=== PATIENT | female | born 2000 | race African-American/Black ===

== ENCOUNTER → 2023-03-29 | Outpatient (CLI) | payer OTHER ==
[2023-03-29 12:44] LABS: BASO % 0.5 % (0.0-1.0); EOS # 0.1 10^3/uL (0.0-0.5); EOS % 2.3 % (0.0-3.0); HEMATOCRIT 36.2 % (36.0-47.0); LYMPH # 1.9 10^3/uL (1.5-5.0); LYMPH % 44.4 % (24.0-44.0); MEAN CORPUSCULAR HEMOGLOBIN 22.5 pg (27.0-33.0); MEAN CORPUSCULAR HGB CONC 30.4 g/dl (32.0-36.5); MONO # 0.4 10^3/uL (0.0-0.8); MONO % 9.6 % (2.0-8.0); NEUTROPHILS # 1.8 10^3/uL (1.5-8.5); NEUTROPHILS % 43.2 % (36.0-66.0); PLATELET COUNT, AUTOMATED 309 10^3/uL (150-450); RED BLOOD COUNT 4.89 10^6/uL (4.00-5.40); WHITE BLOOD COUNT 4.3 10^3/uL (4.0-10.0)
[2023-03-29 13:10] LABS: PERCENT SATURATION 6.3 % (13.2-45.0)
== END ==
LOC: M LAB 11:48
PROVIDERS: ATTEND Family Medicine
DX: D50.9 Iron deficiency anemia, unspecified (principal)

== ENCOUNTER 2023-04-01 13:09 | Outpatient (CLI) | payer OTHER ==
[~2023-04-01] VITALS: Ht 154.9 cm; Wt 50.3 kg
[2023-04-01] MEDS: FERRIC CARBOXYMALTOSE INJ 750 MG in NS 250 ML (>50kg) IV ONE (13:56)
[2023-04-01] MEDS ORDERED: BIRTH CONTROL PO (13:59)
[2023-04-01 14:00] VITALS: BP 138/81; O2SAT 100
[2023-04-01] MEDS ORDERED: diphenhydrAMINE 50MG/ML VIAL IV ONE (15:45)
[2023-04-01 16:10] VITALS: BP 109/65; O2SAT 100
== END 2023-04-01 16:15 ==
LOC: M INFU 13:09
PROVIDERS: ATTEND Nurse Practitioner Adult Health
DX: D50.9 Iron deficiency anemia, unspecified (principal)
CPT/HCPCS: 96365; 96366; J1439

== ENCOUNTER 2023-04-08 13:45 | Outpatient (CLI) | payer OTHER ==
[~2023-04-08] VITALS: Ht 154.9 cm; Wt 52.3 kg
[~2023-04-08 13:45] MED LIST: BIRTH CONTROL PO
[2023-04-08] MEDS: FERRIC CARBOXYMALTOSE INJ 750 MG in NS 250 ML (>50kg) IV ONE (13:59)
[2023-04-08 14:00] VITALS: BP 119/70; O2SAT 99
[2023-04-08 15:04] VITALS: BP 121/67; O2SAT 95
== END 2023-04-08 15:10 ==
LOC: M INFU 13:45
PROVIDERS: ATTEND Nurse Practitioner Adult Health
DX: D50.9 Iron deficiency anemia, unspecified (principal)
CPT/HCPCS: 96365; J1439

== ENCOUNTER 2023-10-12 08:27 | Emergency (ER) | payer OTHER ==
[~2023-10-12] VITALS: Ht 154.9 cm; Wt 50.3 kg
[2023-10-12] MEDS ORDERED: VIEN1TAB (09:06)
[2023-10-12 09:55] LABS: URINE PREG TEST NEGATIVE (NEGATIVE)
[2023-10-12] MEDS: NS 1,000 ML IV ONE (10:40)
[2023-10-12] MEDS: PHENAZOPYRIDINE 100 MG TAB PO ONE (10:42)
[2023-10-12 11:12] LABS: BASO % 0.1 % (0.0-1.0); EOS # 0.1 10^3/uL (0.0-0.5); EOS % 1.1 % (0.0-3.0); HEMATOCRIT 37.5 % (36.0-47.0); HEMOGLOBIN 11.7 g/dl (12.0-15.5); LYMPH # 1.9 10^3/uL (1.5-5.0); LYMPH % 21.1 % (24.0-44.0); MEAN CORPUSCULAR HGB CONC 31.2 g/dl (32.0-36.5); MONO # 0.7 10^3/uL (0.0-0.8); MONO % 7.9 % (2.0-8.0); NEUTROPHILS # 6.1 10^3/uL (1.5-8.5); NEUTROPHILS % 69.6 % (36.0-66.0); PLATELET COUNT, AUTOMATED 224 10^3/uL (150-450); RED BLOOD COUNT 4.87 10^6/uL (4.00-5.40); WHITE BLOOD COUNT 8.8 10^3/uL (4.0-10.0)
[2023-10-12 11:33] LABS: BLOOD UREA NITROGEN 9 MG/DL (9-23); CALCIUM LEVEL 8.9 MG/DL (8.5-10.1); CARBON DIOXIDE LEVEL 25 MMOL/L (20-31); CHLORIDE LEVEL 107 MMOL/L (98-107); CREATININE FOR GFR 0.75 MG/DL (0.55-1.30); GLOMERULAR FILTRATION RATE > 60.0 (>60); GLUCOSE, FASTING 91 MG/DL (60-100); POTASSIUM SERUM 4.5 MMOL/L (3.5-5.1); SODIUM LEVEL 136 MMOL/L (136-145)
[2023-10-12 11:41] VITALS: BP 103/56; TEMP 98; O2SAT 98
[2023-10-12] MEDS ORDERED: CEPH500C PO (12:08)
[2023-10-12] MEDS ORDERED: PYRI1TAB5 PO (12:08)
== END 2023-10-12 12:21 | disposition home or self-care (01) ==
LOC: M ED 08:27
DX: N39.0 Urinary tract infection, site not specified (principal); Z91.018 Allergy to other foods; Z79.2 Long term (current) use of antibiotics; Z79.3 Long term (current) use of hormonal contraceptives

== ENCOUNTER 2024-03-04 12:29 | Emergency (ER) | payer OTHER ==
[~2024-03-04] VITALS: Ht 154.9 cm; Wt 50.2 kg
[~2024-03-04 12:29] MED LIST changes: +CEPH500C PO; +PYRI1TAB5 PO; +VIEN1TAB
[2024-03-04 13:57] LABS: BASO % 0.4 % (0.0-1.0); EOS # 0.1 10^3/uL (0.0-0.5); EOS % 2.6 % (0.0-3.0); LYMPH # 1.9 10^3/uL (1.5-5.0); LYMPH % 41.6 % (24.0-44.0); MEAN CORPUSCULAR HEMOGLOBIN 23.3 pg (27.0-33.0); MEAN CORPUSCULAR HGB CONC 30.8 g/dl (32.0-36.5); MEAN CORPUSCULAR VOLUME 75.7 fl (80.0-96.0); MONO # 0.5 10^3/uL (0.0-0.8); MONO % 10.9 % (2.0-8.0); NEUTROPHILS % 44.3 % (36.0-66.0); PLATELET COUNT, AUTOMATED 237 10^3/uL (150-450); RED BLOOD COUNT 5.15 10^6/uL (4.00-5.40); WHITE BLOOD COUNT 4.6 10^3/uL (4.0-10.0)
[2024-03-04 14:22] LABS: LIPASE 39 U/L (12-53)
[2024-03-04 14:25] LABS: ALBUMIN 3.5 G/DL (3.2-5.2); ALKALINE PHOSPHATASE 55 U/L (35-104); ALT/SGPT 18 U/L (7.0-40); AST/SGOT 23 U/L (<34); BILIRUBIN,DIRECT 0.2 MG/DL (<0.4); BILIRUBIN,TOTAL 0.7 MG/DL (0.3-1.2); BLOOD UREA NITROGEN 9 MG/DL (9-23); CALCIUM LEVEL 9.2 MG/DL (8.5-10.1); CARBON DIOXIDE LEVEL 26 MMOL/L (20-31); CHLORIDE LEVEL 107 MMOL/L (98-107); CREATININE FOR GFR 0.71 MG/DL (0.55-1.30); GLOMERULAR FILTRATION RATE > 60.0 (>60); GLUCOSE, FASTING 82 MG/DL (60-100); SODIUM LEVEL 141 MMOL/L (136-145); TOTAL PROTEIN 7.4 G/DL (5.7-8.2)
[2024-03-04 15:16] LABS: KETONE, URINE AUTO RFX NEGATIVE (NEGATIVE); LEUKOCYTE ESTERASE UR AUTO RFX NEGATIVE (NEGATIVE); MUCUS, URINE RFX SMALL (NEGATIVE); NITRITE, URINE AUTO RFX NEGATIVE (NEGATIVE); RBC, URINE AUTO RFX 0 /HPF (0-3); SQUAM EPITHELIAL CELL UR AURFX 0 /HPF (0-6); WBC, URINE AUTO RFX 0 /HPF (0-3)
[2024-03-04 17:12] LABS: HCG, SERUM QUALITATIVE NEGATIVE (NEGATIVE)
[2024-03-04] MEDS: IBUPROFEN 600MG TAB PO ONE (18:56)
[2024-03-04 20:30] VITALS: BP 117/86
[2024-03-04 20:31] VITALS: TEMP 98.1; O2SAT 99
[2024-03-04] MEDS ORDERED: COLA100C5 PO (20:39)
[2024-03-04] MEDS ORDERED: MIRA3350 PO (20:39)
[2024-03-04] MEDS: FLEET ENEMA PR ONE (20:47)
[2024-03-04] MEDS: MAGNESIUM CITRATE 300ML BTL PO ONE (20:47)
== END 2024-03-04 20:52 | disposition home or self-care (01) ==
LOC: M ED 12:29
DX: K59.00 Constipation, unspecified (principal); Z79.899 Other long term (current) drug therapy; Z91.018 Allergy to other foods

== ENCOUNTER 2024-05-18 20:11 | Emergency (ER) | payer OTHER ==
[~2024-05-18] VITALS: Ht 154.9 cm; Wt 51.3 kg
[~2024-05-18 20:11] MED LIST changes: +COLA100C5 PO; +MIRA3350 PO
[2024-05-18 20:13] VITALS: BP 131/80; TEMP 97.4; O2SAT 100
[2024-05-18 20:32] LABS: KETONE, URINE AUTO RFX NEGATIVE (NEGATIVE); NITRITE, URINE AUTO RFX NEGATIVE (NEGATIVE); RBC, URINE AUTO RFX 0 /HPF (0-3); SQUAM EPITHELIAL CELL UR AURFX 2 /HPF (0-6)
[2024-05-18 20:33] LABS: LEUKOCYTE ESTERASE UR AUTO RFX 3+ (NEGATIVE); WBC, URINE AUTO RFX 32 /HPF (0-3)
[2024-05-18] MEDS ORDERED: CEFD300CAP PO (20:47)
[2024-05-18] MEDS: CEFDINIR 300 MG CAP (OMNICEF) PO ONE (20:55)
== END 2024-05-18 21:10 | disposition home or self-care (01) ==
LOC: M ED 20:11
DX: N30.00 Acute cystitis without hematuria (principal); Z91.018 Allergy to other foods; Z79.2 Long term (current) use of antibiotics; Z79.899 Other long term (current) drug therapy

== ENCOUNTER → 2024-05-25 | Outpatient (CLI) | payer OTHER ==
[~2024-05-25] MED LIST changes: +CEFD300CAP PO
== END ==
LOC: M PLAIMG 08:05
PROVIDERS: ATTEND Nurse Practitioner Adult Health
DX: M54.59 Other low back pain (principal)